=== PATIENT | male | born 1995 | race Caucasian/White ===

== ENCOUNTER 2017-06-19 10:24 | Emergency (ER) | payer SELFPAY ==
[~2017-06-19] VITALS: Ht 185.4 cm; Wt 97.5 kg
[~2017-06-19 10:24] MED LIST: CEPH250SUA PO; HYDACE5 PO; MIGRAINE MED PO; NAPR500 PO; RXCEPH250S PO; SULTRIEL PO
[2017-06-19] MEDS ORDERED: Zofran Odt4 MG SL (11:07)
== END 2017-06-19 11:10 | disposition home or self-care (01) ==
LOC: ER 10:24
DX: K52.9 Noninfective gastroenteritis and colitis, unspecified (principal)
CPT/HCPCS: 99282

== ENCOUNTER 2017-11-19 15:25 | Emergency (ER) | payer SELFPAY ==
[~2017-11-19] VITALS: Ht 185.4 cm; Wt 102.1 kg
[~2017-11-19 15:25] MED LIST changes: +Zofran Odt4 MG SL
[2017-11-19] MEDS ORDERED: Robaxin500 MG PO (16:58)
== END 2017-11-19 17:08 | disposition home or self-care (01) ==
LOC: ER 15:25
DX: M54.9 Dorsalgia, unspecified (principal); X50.0XXA Overexertion from strenuous movement or load, initial encounter
CPT/HCPCS: J1885

== ENCOUNTER → 2018-08-31 | Outpatient (CLI) | payer BC ==
[~2018-08-31] MED LIST changes: +Robaxin500 MG PO
== END | disposition home or self-care (01) ==
LOC: LAB SHORT 18:20 → LAB EV 18:20
DX: J06.9 Acute upper respiratory infection, unspecified (principal)
CPT/HCPCS: 87070